=== PATIENT | female | born 1950 | race Caucasian/White ===

== ENCOUNTER → 2016-05-16 | Outpatient (CLI) | payer OTHER ==
[~2016-05-16] VITALS: Ht 171.5 cm; Wt 166.0 kg
[~2016-05-16] MED LIST: CALC600T33 PO; CHOL100010 PO; CRS10 PO; LEVO112T2 PO; MULT-506 PO; PENI-82 PO
[2016-05-16 13:54] VITALS: BP 152/82; PULSE 84; Ht 171.5 cm; Wt 166.0 kg
== END | disposition home or self-care (01) ==
LOC: C.NEUR 13:32
PROVIDERS: ATTEND Internal Medicine Pulmonary Disease
DX: G47.30 Sleep apnea, unspecified (principal)

== ENCOUNTER → 2016-06-11 | Outpatient (CLI) | payer OTHER | END | disposition home or self-care (01) | LOC: C.PAPS 14:30 | PROVIDERS: ATTEND Obstetrics & Gynecology | DX: Z12.4 Encounter for screening for malignant neoplasm of cervix (principal) ==

== ENCOUNTER → 2016-06-17 | Outpatient (CLI) | payer OTHER ==
[2016-06-17 15:12] LABS: CREATININE 0.78 mg/dl (0.60-1.20)
== END | disposition home or self-care (01) ==
LOC: C.LABBC 11:50
PROVIDERS: ATTEND Obstetrics & Gynecology
DX: R93.8 Abnormal findings on diagnostic imaging of other specified body structures (principal); Z01.818 Encounter for other preprocedural examination

== ENCOUNTER → 2016-07-04 | Outpatient (CLI) | payer OTHER ==
[~2016-07-04] MED LIST changes: +GADAVIST IV PRN
--- NOTE | 2016-07-07 14:25 | MAMMOGRAPHY REPORT ---
BREAST MRI OF BOTH BREASTS : 07/04/2016 CLINICAL HISTORY: History of left mastectomy. Short interval followup of right breast enhancing foci . COMPARISON: Comparison is made to exams dated: 12/10/2015 breast MRI, 10/02/2015 mammogram, 10/02/2015 ultrasound, 03/28/2015 mammogram, and 03/19/2015 mammogram - [facility]. Technique: The patient was placed prone in a dedicated breast imaging coil. Precontrast axial T1-we ighted, axial T2-weighted fat saturation, and axial T1-weighted fat saturation images were obtained. After the administration of 7.5 mL of Gadavist IV contrast, sequential T1-weighted fat saturation images were obtained. Subtraction images were obtained of the dynamic contrast enhanced sequences, and 3-D reformations were performed. The [employer] software was used for kinetic analysis. Findings: The patient is status post left mastectomy. There is mild background parenchymal enhancement involv ing the right breast. There are multiple small foci of enhancement seen scattered within the right breast, which are stable compared to the December 2015 MRI and felt to represent normal background pa renchymal enhancement. There are no suspicious enhancing masses or areas of abnormal non-mass enhan cement within the right breast or left mastectomy bed. There is no evidence of axillary adenopathy. The chest wall structures are negative. Visualized ex tramammary soft tissues are grossly unremarkable. IMPRESSION: ACR BI-RADS CATEGORY 2: BENIGN Status post left mastectomy, with no MRI evidence of malignancy in the right breast or left mastecto my bed. Return to annual mammogram screening schedule is recommended, due September 2016. If continuin g with screening breast MRI, would recommend in 1 year. Patricia Banks M.D. 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
== END | disposition home or self-care (01) ==
LOC: C.MRI 06-24 10:57
PROVIDERS: ATTEND Obstetrics & Gynecology
DX: R93.8 Abnormal findings on diagnostic imaging of other specified body structures (principal); Z90.12 Acquired absence of left breast and nipple